=== PATIENT | male | born 1980 | race African-American/Black ===

== ENCOUNTER 2021-03-17 10:16 | Day surgery (SDC) | payer OTHER ==
[~2021-03-17] VITALS: Ht 180.3 cm; Wt 104.3 kg
[~2021-03-17 10:16] MED LIST: ALLERGY RELF10 M3 PO; AZELASTINE0.1 %; BACTRIM DS1 TAB OR; DARVOCET N-100100 - OR; DARVOCET-N 100100 MG OR; FIORICET PO; FLEXERIL PO; FLONASE AL50 MCG/ACT; NAPROSYN500 MG PO; NO HOME MEDS; TRAMADOL HCL50 MG OR; XYZAL ALLERGY 245 MG PO; ZANAFLEX2 MG PO; ZANAFLEX4 MG PO; [UNRECOGNIZED DRUG - REMARK] PO
[2021-03-17] MEDS ORDERED: DICYCLOMINE10 MG PO (10:47)
[2021-03-17 12:58] VITALS: BP 112/75
--- NOTE | 2021-03-17 15:47 | NUR ---
CALLED PATIENT STATES AT HOME RESTING, DOING WELL, TOLERATED PROCEDURE WELL. VOICING NO CONCERNS AT TIME OF CALL.
[2021-03-23] MEDS ORDERED: OMEPRAZOLE20 MG PO (09:08)
[2021-03-23] MEDS ORDERED: Levaquin PO (09:08)
[2021-03-23] MEDS ORDERED: AMOXICILLIN500 MG PO (09:12)
--- NOTE | 2021-03-23 11:05 | NUR ---
PER PHYSICIAN, PATIENT NOTIFIED OF PATHOLOGY RESULTS FROM PROCEDURE AND ADVISED PRESCRIPTION CALLED INTO [facility]. PATIENT AGREED WITH INFORMATION GIVEN, WILL SIZE TESTER PRESCRIPTION, AND KEEP FOLLOW UP 03/30/21 IN OFFICE TO REEVALUATE SYMPTOMS. NO CONCERNS VOICED AT TIME OF CALL.
== END 2021-03-17 11:17 | disposition home or self-care (01) | DRG 392 ==
LOC: ENDO 10:16
PROVIDERS: ATTEND Surgery
PROC: 0DJD8ZZ Inspection of Lower Intestinal Tract, Via Natural or Artificial Opening Endoscopic (ICD-10-PCS; principal; 2021-03-17)
PROC: 0DB48ZX Excision of Esophagogastric Junction, Via Natural or Artificial Opening Endoscopic, Diagnostic (ICD-10-PCS; 2021-03-17)
PROC: 0DB78ZX Excision of Stomach, Pylorus, Via Natural or Artificial Opening Endoscopic, Diagnostic (ICD-10-PCS; 2021-03-17)
DX: K29.80 Duodenitis without bleeding (principal); K29.50 Unspecified chronic gastritis without bleeding; K44.9 Diaphragmatic hernia without obstruction or gangrene; K20.90 Esophagitis, unspecified without bleeding; K59.00 Constipation, unspecified

== ENCOUNTER 2021-04-03 12:19 | Emergency (ER) | payer OTHER ==
[~2021-04-03] VITALS: Ht 180.3 cm; Wt 102.0 kg
[~2021-04-03 12:19] MED LIST changes: +AMOXICILLIN500 MG PO; +DICYCLOMINE10 MG PO; +Levaquin PO; +OMEPRAZOLE20 MG PO
[2021-04-03 13:21] LABS: URINE BILIRUBIN - DIPSTICK NEGATIVE (NEGATIVE); URINE BLOOD DIPSTICK NEGATIVE (NEGATIVE); URINE COLOR YELLOW; URINE GLUCOSE - DIPSTICK NEGATIVE (NEGATIVE); URINE KETONE NEGATIVE (NEGATIVE); URINE LEUK ESTERASE NEGATIVE (NEGATIVE); URINE PH 6.5 (4.5-8.0); URINE PROTEIN - DIPSTICK NEGATIVE (NEG-TRACE); URINE UROBILINOGEN - DIPSTICK 0.2 E.U./dL (0.2)
[2021-04-03 13:26] LABS: HEMATOCRIT 43.6 % (39.0-50.0); HEMOGLOBIN 14.3 g/dl (14.0-18.0); IMMATURE GRANULOCYTES 0.5 % (0.0-5.0); MEAN CELL VOLUME 89.5 fL CALC (80.0-100.0); MEAN CORPUSCULAR HGB 29.4 pG CALC (26.0-32.0); MEAN CORPUSCULAR HGB CONC 32.8 g/dL CAL (32.0-36.0); NEUT# 3.08 thou/uL (1.82-7.42); RED BLOOD COUNT 4.87 mill/uL (4.70-6.10); RED CELL DISTRI WIDTH 12.7 % (11.5-15.5)
[2021-04-03 13:29] LABS: URINE NITRITE - DIPSTICK NEGATIVE (Negative)
[2021-04-03 13:43] LABS: ALBUMIN 3.7 g/dL (3.2-5.0); ALKALINE PHOSPHATASE 47 u/l (38-126); AMYLASE 115 u/l (30-110); ANION GAP 9 (6-22 (CALC)); BUN 9 mg/dL (9-20); BUN/CREATININE RATIO 7 (12-20 (CALC)); CARBON DIOXIDE 29 mmol/l (22-30); CHLORIDE 103 mmol/l (95-108); CREATININE 1.3 mg/dL (0.7-1.3); GFR > 60 ML/MIN (>=60 (CALC)); GFR FOR AFR.AMER. > 60 ML/MIN (>=60 (CALC)); LIPASE 152 u/l (23-300); POTASSIUM 4.1 mmol/l (3.5-5.1); SGOT/AST 22 u/l (17-59); SODIUM 137 mmol/l (137-146); TOTAL PROTEIN 6.7 g/dL (6.3-8.2)
[2021-04-03 13:44] LABS: BILIRUBIN, TOTAL 0.3 mg/dL (0.0-1.4)
[2021-04-03 14:11] VITALS: BP 147/65
[2021-04-03] MEDS ORDERED: TAM75CAP PO (14:14)
[2021-04-03] MEDS ORDERED: ZPAK PO (14:14)
== END 2021-04-03 14:22 | disposition home or self-care (01) | DRG 179 ==
LOC: ED 12:19
DX: U07.1 COVID-19 (principal); J10.1 Influenza due to other identified influenza virus with other respiratory manifestations

== ENCOUNTER 2021-07-15 16:35 | Emergency (ER) | payer OTHER ==
[~2021-07-15] VITALS: Ht 180.3 cm; Wt 90.0 kg
[~2021-07-15 16:35] MED LIST changes: +TAM75CAP PO; +ZPAK PO
[2021-07-15 17:50] LABS: HEMATOCRIT 38.8 % (39.0-50.0); HEMOGLOBIN 13.2 g/dl (14.0-18.0); IMMATURE GRANULOCYTES 0.2 % (0.0-5.0); MEAN CELL VOLUME 86.8 fL CALC (80.0-100.0); MEAN CORPUSCULAR HGB 29.5 pG CALC (26.0-32.0); NEUT# 2.53 thou/uL (1.82-7.42); RED BLOOD COUNT 4.47 mill/uL (4.70-6.10); RED CELL DISTRI WIDTH 13.2 % (11.5-15.5)
[2021-07-15 18:05] LABS: ALBUMIN 3.6 g/dL (3.2-5.0); ALKALINE PHOSPHATASE 40 u/l (38-126); ANION GAP 8 (6-22 (CALC)); BILIRUBIN, TOTAL 0.4 mg/dL (0.0-1.4); BUN 15 mg/dL (9-20); BUN/CREATININE RATIO 12 (12-20 (CALC)); CARBON DIOXIDE 28 mmol/l (22-30); CHLORIDE 106 mmol/l (95-108); CREATININE 1.2 mg/dL (0.7-1.3); GFR > 60 ML/MIN (>=60 (CALC)); GFR FOR AFR.AMER. > 60 ML/MIN (>=60 (CALC)); POTASSIUM 3.7 mmol/l (3.5-5.1); SGOT/AST 23 u/l (17-59); SODIUM 139 mmol/l (137-146); TOTAL PROTEIN 6.5 g/dL (6.3-8.2)
[2021-07-15 19:00] LABS: URINE BILIRUBIN - DIPSTICK NEGATIVE (NEGATIVE); URINE BLOOD DIPSTICK NEGATIVE (NEGATIVE); URINE COLOR YELLOW; URINE GLUCOSE - DIPSTICK NEGATIVE (NEGATIVE); URINE KETONE NEGATIVE (NEGATIVE); URINE LEUK ESTERASE NEGATIVE (NEGATIVE); URINE PROTEIN - DIPSTICK NEGATIVE (NEG-TRACE); URINE UROBILINOGEN - DIPSTICK 0.2 E.U./dL (0.2)
[2021-07-15] MEDS ORDERED: CYCLOBENZAPRINE10 MG PO (19:00)
[2021-07-15] MEDS ORDERED: NAPROXEN500 MG PO (19:00)
[2021-07-15 19:01] LABS: URINE NITRITE - DIPSTICK NEGATIVE (Negative)
[2021-07-15 19:11] VITALS: BP 121/82
== END 2021-07-15 19:25 | disposition home or self-care (01) | DRG 552 ==
LOC: ED 16:35
PROVIDERS: Emergency Medicine
DX: S33.5XXA Sprain of ligaments of lumbar spine, initial encounter (principal); X50.0XXA Overexertion from strenuous movement or load, initial encounter; Y93.B3 Activity, free weights; Y92.39 Other specified sports and athletic area as the place of occurrence of the external cause

== ENCOUNTER 2022-02-09 11:27 | Emergency (ER) | payer OTHER ==
[~2022-02-09] VITALS: Ht 180.3 cm; Wt 102.0 kg
[~2022-02-09 11:27] MED LIST changes: +CYCLOBENZAPRINE10 MG PO; +NAPROXEN500 MG PO
[2022-02-09 11:34] VITALS: BP 137/111
[2022-02-09 11:36] VITALS: BP 114/54
[2022-02-09] MEDS ORDERED: VOLTAREN1%GEL TOP (11:49)
[2022-02-09] MEDS ORDERED: CYCLOBENZAPRINE10 MG PO (11:55)
[2022-02-09] MEDS ORDERED: DECADRON4 MG PO (11:55)
[2022-02-09 12:12] VITALS: BP 114/54
== END 2022-02-09 12:19 | disposition home or self-care (01) | DRG 552 ==
LOC: ED 11:27
DX: M54.50 Low back pain, unspecified (principal)

== ENCOUNTER 2024-10-05 09:13 | Emergency (ER) | payer OTHER ==
[~2024-10-05] VITALS: Ht 180.3 cm; Wt 110.0 kg
[~2024-10-05 09:13] MED LIST changes: +DECADRON4 MG PO; +OMEPRAZOLE DR20 MG; +PROTONIX40 M2 PO; +VOLTAREN1%GEL TOP
[2024-10-05 10:29] LABS: BASO% 0.6 % (0-3); EOS% 3.5 % (0-8); HEMATOCRIT 44.1 % (39.0-50.0); HEMOGLOBIN 14.5 g/dl (14.0-18.0); IMMATURE GRANULOCYTES 0.2 % (0.0-5.0); LYMPH% 41.2 % (15-41); MEAN CORPUSCULAR HGB 28.3 pG CALC (26.0-32.0); MEAN CORPUSCULAR HGB CONC 32.9 g/dL CAL (32.0-36.0); MONO% 10.3 % (2-13); NEUT# 2.14 thou/uL (1.82-7.42); NEUT% 44.2 % (42-76); RED BLOOD COUNT 5.13 mill/uL (4.70-6.10); RED CELL DISTRI WIDTH 13.1 % (11.5-15.5)
[2024-10-05 10:58] LABS: ALBUMIN 4.4 g/dL (3.2-5.0); BILIRUBIN, TOTAL 0.7 mg/dL (0.2-1.3); CREATININE 1.3 mg/dL (0.7-1.3); POTASSIUM 4.1 mmol/l (3.5-5.1); TOTAL PROTEIN 7.8 g/dL (6.3-8.2)
[2024-10-05] MEDS ORDERED: ALL DAY10 MG PO (11:26)
[2024-10-05 11:39] VITALS: BP 140/101
== END 2024-10-05 11:50 | disposition home or self-care (01) | DRG 156 ==
LOC: ED 09:13
PROVIDERS: Family Medicine
DX: H93.11 Tinnitus, right ear (principal); I10 Essential (primary) hypertension